=== PATIENT | female | born 1955 | race Caucasian/White ===

== ENCOUNTER 2017-07-08 13:17 | Emergency (ER) | payer OTHER ==
[~2017-07-08] VITALS: Wt 75.0 kg
[~2017-07-08 13:17] MED LIST: CARV12.598 PO; MELO-216 PO
[2017-07-08] MEDS ORDERED: LIDOCAINE/MYLANTA 40 ML BTL PO STA (13:33)
[2017-07-08] MEDS ORDERED: ASPIRIN 325 MG TAB PO STA (13:33)
[2017-07-08 13:49] LABS: BASOPHIL # 0.1 10^3/ul (0.0-0.1); BASOPHILS % 0.5 % (0.0-2.0); EOSINOPHILS # 0.2 10^3/ul (0.0-0.5); EOSINOPHILS % 2.3 % (0.0-7.0); HEMATOCRIT 44.4 % (37.0-47.0); HEMOGLOBIN 15.4 g/dl (12.0-16.0); LYMPHOCYTES # 2.5 10^3/ul (0.8-2.9); LYMPHOCYTES % 27.6 % (15.0-51.0); MEAN CORPUSCULAR HGB CONC 34.7 g/dl (32.0-37.0); MEAN CORPUSCULAR VOLUME 86.4 fl (82.0-101.0); MONOCYTE # 0.6 10^3/ul (0.3-0.9); MONOCYTES % 6.4 % (0.0-11.0); NEUTROPHIL # 5.7 10^3/ul (1.6-7.5); NEUTROPHILS % 62.2 % (39.0-77.0); PLATELET COUNT 250 10^3/UL (140-415); RED BLOOD COUNT 5.14 10^6/ul (4.20-5.40); RED CELL DISTRIBUTION WIDTH 12.7 % (11.5-14.5); WHITE BLOOD COUNT 9.1 10^3/ul (4.8-10.8)
--- NOTE | 2017-07-08 13:55 | ERD ---
ER Documentation Chief Complaint Chief Complaint CHEST PAIN FOR A FEW WKS. NEG STRESS TEST. NON PROVOKED. NO SOB NOTED. HPI 62-year-old female presents for chest pain is going on for a few weeks. It does wax and wane is described as a sharp pressure-like pain. States that she is even recently had a stress test that was negative. Nothing makes the pain better or worse. She does not have any shortness of breath, nausea, vomiting. ROS All systems reviewed and are negative except as per history of present illness. Medications Home Meds Active Scripts Ranitidine Hcl* (Zantac*) 150 Mg Tablet, 150 MG PO BID, #60 TAB Prov:JUMANA FLORES DO 07/08/17 Reported Medications Meloxicam* (Meloxicam*) 7.5 Mg Tablet, 7.5 MG PO DAILY, #30 TAB 09/11/15 Carvedilol* (Coreg*) 12.5 Mg Tablet, 12.5 MG PO BID, TAB 09/11/15 Discontinued Scripts Ranitidine Hcl* (Zantac*) 150 Mg Tablet, 150 MG PO BID Y for EPIGASTRIC PAIN, # 30 TAB Prov:JUMANA FLORES DO 07/08/17 Allergies Allergies: Coded Allergies: No Known Allergy (Unverified , 07/08/17) PMhx/Soc History of Surgery: No Anesthesia Reaction: No Hx Neurological Disorder: No Hx Respiratory Disorders: No Hx Cardiac Disorders: Yes (HTN, PALPITATIONS) Hx Psychiatric Problems: No Hx Miscellaneous Medical Probl: No Hx Alcohol Use: Yes (OCCASIONAL) Hx Substance Use: No Hx Tobacco Use: No Physical Exam Vitals Vital Signs Date Time Temp Pulse Resp B/P Pulse Ox O2 Delivery O2 Flow Rate FiO2 07/08/17 16:33 66 16 135/68 98 Room Air 07/08/17 13:30 98.5 75 21 136/75 98 Physical Exam Const: [] Distress, pleasant Head: Atraumatic Eyes: Normal Conjunctiva ENT: Normal External Ears, Nose and Mouth. Neck: Full range of motion..~ No JVD Resp: Clear to auscultation bilaterally Cardio: Regular rate and rhythm, no murmurs Abd: Soft, non tender, non distended. Normal bowel sounds Skin: No petechiae or rashes Ext: No cyanosis, or edema Neur: Awake and alert and oriented 3, no focal deficits Psych: Normal Mood and Affect Result Diagram: 07/08/17 1343 07/08/17 1343 Results 24 hrs Laboratory Tests Test 07/08/17 13:43 White Blood Count 9.110^3/ul Red Blood Count 5.1410^6/ul Hemoglobin 15.4g/dl Hematocrit 44.4% Mean Corpuscular Volume 86.4fl Mean Corpuscular Hemoglobin 30.0pg Mean Corpuscular Hemoglobin Concent 34.7g/dl Red Cell Distribution Width 12.7% Platelet Count 75576^3/UL Mean Platelet Volume 12.0fl Neutrophils % 62.2% Lymphocytes % 27.6% Monocytes % 6.4% Eosinophils % 2.3% Basophils % 0.5% Nucleated Red Blood Cells % 0.0/100WBC Neutrophils # 5.710^3/ul Lymphocytes # 2.510^3/ul Monocytes # 0.610^3/ul Eosinophils # 0.210^3/ul Basophils # 0.110^3/ul Nucleated Red Blood Cells # 0.010^3/ul Sodium Level 142mmol/L Potassium Level 4.3mmol/L Chloride Level 105mmol/L Carbon Dioxide Level 26mmol/L Anion Gap 15 Blood Urea Nitrogen 13mg/dl Creatinine 0.72mg/dl Glucose Level 111mg/dl Calcium Level 9.6mg/dl Troponin I < 0.012ng/ml B-Type Natriuretic Peptide 60PG/ML Current Medications Medications (Trade) Dose Ordered Sig/Blanco Route PRN Reason Start Time Stop Time Status Last Admin Dose Admin Aspirin (Aspirin) 325 mg ONCE STAT PO 07/08/17 13:33 07/08/17 13:34 DC 07/08/17 13:59 Miscellaneous Medication (Gi Cocktail (2)) 40 ml ONCE STAT PO 07/08/17 13:33 07/08/17 13:34 DC 07/08/17 13:59 Procedures/MDM Recurrent chest pain that do not believe is related to acute coronary syndrome. She was given 325 mg aspirin. Was when she was given a GI cocktail that her pain completely disappeared. Further questioning the pain is worse when she lays down in the morning which would be consistent with GERD. I am recommending that she obtain outpatient echo through her primary care doctor. I am discharging her with Zantac twice daily. EKG interpretation: Normal sinus rhythm rate of 75, normal axis, normal intervals, no ST or T-wave changes concerning for acute ischemia. Normal heel cover softener interpretation: Normal sinus rhythm without arrhythmia Chest x-ray interpretation: I see no acute process, see no widened mediastinum, pneumothorax, no pulmonary edema, no fractures. Departure Diagnosis: Primary Impression: Chest pain Additional Impression: GERD (gastroesophageal reflux disease) Condition: Stable SANDRAJUMANASHEREEN SUERO Jul 08, 2017 13:55
--- NOTE | 2017-07-08 14:05 | RADRPT ---
PROCEDURE: XR Chest. CLINICAL INDICATION: chest pain TECHNIQUE: Single frontal view of the chest was obtained COMPARISON: None FINDINGS: The heart and mediastinum are within normal limits. There is mild elevation of the right diaphragm. The lungs are clear. There is no pleural effusion or pneumothorax. RPTAT: AA IMPRESSION: No acute disease. .Braden Warner MD, MD Date Time Electronically viewed and signed by .Braden Warner MD, on 07/08/2017 14:05 .S/
[2017-07-08 14:07] LABS: ANION GAP 15 (8-16); BLOOD UREA NITROGEN 13 mg/dl (7-20); CALCIUM 9.6 mg/dl (8.4-10.2); CARBON DIOXIDE 26 mmol/L (21-31); CHLORIDE 105 mmol/L (97-110); CREATININE 0.72 mg/dl (0.44-1.00); GLUCOSE 111 mg/dl (70-220); POTASSIUM 4.3 mmol/L (3.5-5.1); SODIUM 142 mmol/L (135-144)
[2017-07-08 14:19] LABS: B-TYPE NATRIURETIC PEPTIDE 60 PG/ML (0-125)
[2017-07-08 14:21] LABS: TROPONIN-I < 0.012 ng/ml (0.00-0.12)
[2017-07-08 16:33] VITALS: BP 135/68; PULSE 66; RESP 16
[2017-07-08] MEDS ORDERED: RANI150T9 PO ×2 (17:11→17:12)
== END 2017-07-08 17:20 | disposition home or self-care (01) ==
LOC: E/R 13:17
DX: K21.9 Gastro-esophageal reflux disease without esophagitis (principal); I10 Essential (primary) hypertension
CPT/HCPCS: 36415; 71010; 80048; 83880; 84484; 85025; Z7502; Z7610